=== PATIENT | male | born 1960 | race African-American/Black ===

== ENCOUNTER 2023-12-24 19:37 | Inpatient (IN) | payer OTHER ==
[2023-12-24] MEDS: VANCOMYCIN HCL 1,500 MG in DEXTROSE 5%-WATER - 500 ML IVPB ONE (21:07)
[2023-12-24] MEDS: VANCOMYCIN PREMIX 1.5 GM 1,500 MG/300 ML BAG IVPB ONE (21:08)
[2023-12-24 21:15] LABS: BASO % 0.8 % (0-2.0); HEMATOCRIT 39.2 % (35.4-49); LYMPH % 23.4 % (8-40); MCH 28.4 pg (25.7-33.7); MCHC 33.2 g/dl (32.0-35.9); MEAN CELL VOLUME 85.6 fl (80-96); MEAN PLT VOLUME 10.9 fl (7.5-11.1); MONO % 10.9 % (3.8-10.2); NEUT % 60.9 % (42.8-82.8); PLATELET COUNT 344 10^3/uL (134-434); RBC 4.58 M/mm3 (4.00-5.60); RDW 15.9 % (11.9-15.9); WHITE BLOOD COUNT 12.3 K/mm3 (4.0-10.0)
[2023-12-24 21:43] LABS: CHLORIDE 97 mmol/L (98-107); SODIUM 128 mmol/L (136-145)
[2023-12-24 21:46] LABS: ALBUMIN 3.6 g/dl (3.4-5.0); BLOOD UREA NITROGEN 24.4 mg/dL (7-18); CO2 24 mmol/L (21-32)
[2023-12-24 21:47] LABS: MAGNESIUM 2.3 mg/dL (1.8-2.4)
[2023-12-24 21:49] LABS: CREATININE 1.9 mg/dL (0.55-1.3); SGOT/AST 104 U/L (15-37)
[2023-12-24 21:50] LABS: TOT PROT 9.5 g/dl (6.4-8.2)
[2023-12-24 21:51] LABS: BILIRUBIN,TOTAL 0.6 mg/dL (0.2-1)
[2023-12-24 21:52] LABS: ALK PHOS 197 U/L (45-117)
[2023-12-24] MEDS ORDERED: ACETAMINOPHEN INJECTION 100 ML IVPB ONE ×2 (22:06→22:58)
[2023-12-24] MEDS ORDERED: CEFEPIME 2 GM/100 ML BAG IVPB ONE (22:07)
[2023-12-24 22:12] LABS: ERYTHROCYTE SEDIMENTATION RATE 67 mm/hr (0-20)
[2023-12-24 22:17] LABS: ANION GAP 7 mmol/L (4-13); GLUCOSE,RANDOM 464 mg/dL (74-106); POTASSIUM 7.3 mmol/L (3.5-5.1); SGPT/ALT 57 U/L (13-61)
[2023-12-24] MEDS: SODIUM CHLORIDE 0.9% 500 ML INFUS.BAG IV ONE (22:53)
[2023-12-24] MEDS: ACETAMINOPHEN 325 MG TABLET (FP) PO ONE (22:54)
[2023-12-24] MEDS: LACTATED RINGERS SOLUTION 1000 ML INFUS.BAG IV ONE (22:54)
[2023-12-24] MEDS: ACETAMINOPHEN 1000 MG/100 ML BAG IVPB ONE ×2 (23:16)
[2023-12-24] MEDS: CEFEPIME HCL/D5W 2 GM/50 ML BAG IVPB ONE (23:25)
[2023-12-24 23:39] LABS: ANION GAP 2 mmol/L (4-13); BLOOD UREA NITROGEN 25.2 mg/dL (7-18); CALCIUM 9.1 mg/dL (8.5-10.1); CHLORIDE 100 mmol/L (98-107); CO2 26 mmol/L (21-32); CREATININE 1.9 mg/dL (0.55-1.3); GLUCOSE,RANDOM 484 mg/dL (74-106); MAGNESIUM 1.9 mg/dL (1.8-2.4); POTASSIUM 4.9 mmol/L (3.5-5.1); SODIUM 129 mmol/L (136-145)
[2023-12-25] MEDS ORDERED: HYDROCORTISONE ACETATE 25 MG/SUPP.RECT RC PRN (03:46)
[2023-12-25] MEDS: INSULIN ASPART SLIDING SCALE (NOVOLOG) 1 VIAL SQ SCH (04:52)
[2023-12-25 09:10] LABS: BASO % 0.8 % (0-2.0); EOS % 5.1 % (0-4.5); HEMATOCRIT 34.5 % (35.4-49); HEMOGLOBIN 10.9 GM/dL (11.7-16.9); LYMPH % 28.2 % (8-40); MCH 27.4 pg (25.7-33.7); MCHC 31.6 g/dl (32.0-35.9); MEAN CELL VOLUME 86.6 fl (80-96); MEAN PLT VOLUME 11.1 fl (7.5-11.1); MONO % 16.3 % (3.8-10.2); NEUT % 49.6 % (42.8-82.8); PLATELET COUNT 313 10^3/uL (134-434); RBC 3.98 M/mm3 (4.00-5.60); RDW 15.5 % (11.9-15.9); WHITE BLOOD COUNT 11.9 K/mm3 (4.0-10.0)
[2023-12-25 09:30] LABS: POTASSIUM 4.6 mmol/L (3.5-5.1)
[2023-12-25 09:34] LABS: CALCIUM 9.5 mg/dL (8.5-10.1)
[2023-12-25 09:35] LABS: BLOOD UREA NITROGEN 22.9 mg/dL (7-18)
[2023-12-25 09:38] LABS: CREATININE 1.6 mg/dL (0.55-1.3)
[2023-12-25] MEDS: amLODIPine BESYLATE 10 MG TABLET (FP) PO SCH (09:54)
[2023-12-25] MEDS: LISINOPRIL 20 MG TABLET PO SCH (09:54)
[2023-12-25] MEDS: VANCOMYCIN/WATER FOR INJ (PEG) 1,000 MG/200 ML BAG IVPB SCH (09:54)
[2023-12-25] MEDS: SENNOSIDES 8.6MG TABLET (FP) PO SCH (09:55)
[2023-12-25] MEDS: ARIPiprazole 5 MG TABLET PO SCH (12:08)
[2023-12-25] MEDS: HEPARIN NA (PORCINE) 5,000 UNITS/ML 1ML VIAL SQ SCH (14:25)
[2023-12-25] MEDS: SODIUM CHLORIDE 1,000 ML IV SCH (16:42)
[2023-12-25] MEDS: ATORVASTATIN CA 40 MG TABLET (FP) PO SCH (21:26)
[2023-12-25] MEDS ORDERED: CEFEPIME HCL 2 GM VIAL (RESTRICTED TO ID) IVPB SCH (22:00)
[2023-12-25] MEDS ORDERED: CEFEPIME 2 GM in DEXTROSE 5%-WATER 100 ML IVPB SCH (22:00)
[2023-12-26] MEDS ORDERED: VANCOMYCIN/WATER FOR INJ (PEG) 1,000 MG/200 ML BAG IVPB SCH (09:00)
[2023-12-26 10:16] LABS: POTASSIUM 4.2 mmol/L (3.5-5.1)
[2023-12-26 10:52] LABS: CALCIUM 9.6 mg/dL (8.5-10.1)
[2023-12-26 10:53] LABS: BLOOD UREA NITROGEN 21.8 mg/dL (7-18)
[2023-12-26 10:55] LABS: CREATININE 1.4 mg/dL (0.55-1.3)
[2023-12-26 10:57] LABS: BILIRUBIN,TOTAL 0.4 mg/dL (0.2-1)
[2023-12-26 10:58] LABS: ALBUMIN 2.7 g/dl (3.4-5.0); TOT PROT 6.9 g/dl (6.4-8.2)
[2023-12-26] MEDS ORDERED: VANCOMYCIN 1,000 MG in DEXTROSE 5%-WATER - 250 ML IVPB ONE (18:26)
[2023-12-26] MEDS: VANCOMYCIN/WATER FOR INJ (PEG) 1,000 MG/200 ML BAG IVPB SCH (20:36)
[2023-12-26] MEDS ORDERED: CEFEPIME 2 GM in DEXTROSE 5%-WATER 100 ML IVPB SCH (22:00)
[2023-12-27 09:22] LABS: BASO % 0.7 % (0-2.0); EOS % 4.7 % (0-4.5); HEMATOCRIT 34.8 % (35.4-49); HEMOGLOBIN 10.9 GM/dL (11.7-16.9); LYMPH % 32.6 % (8-40); MCH 27.2 pg (25.7-33.7); MCHC 31.4 g/dl (32.0-35.9); MEAN CELL VOLUME 86.8 fl (80-96); MEAN PLT VOLUME 10.7 fl (7.5-11.1); MONO % 16.1 % (3.8-10.2); NEUT % 45.9 % (42.8-82.8); PLATELET COUNT 258 10^3/uL (134-434); RBC 4.01 M/mm3 (4.00-5.60); RDW 15.7 % (11.9-15.9); WHITE BLOOD COUNT 12.5 K/mm3 (4.0-10.0)
[2023-12-27 09:52] LABS: POTASSIUM 4.2 mmol/L (3.5-5.1)
[2023-12-27 09:57] LABS: ALBUMIN 2.8 g/dl (3.4-5.0)
[2023-12-27 09:58] LABS: BLOOD UREA NITROGEN 17.9 mg/dL (7-18); CALCIUM 9.7 mg/dL (8.5-10.1)
[2023-12-27 10:04] LABS: CREATININE 1.2 mg/dL (0.55-1.3)
[2023-12-27 10:05] LABS: BILIRUBIN,TOTAL 0.5 mg/dL (0.2-1)
[2023-12-27 10:06] LABS: TOT PROT 7.2 g/dl (6.4-8.2)
[2023-12-27] MEDS: POVIDONE-IODINE 10% SOLN 118 ML BOTTLE TP ONE (12:07)
[2023-12-27] MEDS: ERTAPENEM SODIUM 1 GM in SODIUM CHLORIDE 50 ML IVPB SCH (21:26)
[2023-12-28 08:54] LABS: BASO % 0.9 % (0-2.0); EOS % 4.5 % (0-4.5); HEMATOCRIT 35.4 % (35.4-49); HEMOGLOBIN 11.2 GM/dL (11.7-16.9); MCH 27.4 pg (25.7-33.7); MCHC 31.7 g/dl (32.0-35.9); MEAN CELL VOLUME 86.6 fl (80-96); MEAN PLT VOLUME 11.1 fl (7.5-11.1); MONO % 14.5 % (3.8-10.2); NEUT % 48.1 % (42.8-82.8); PLATELET COUNT 316 10^3/uL (134-434); RBC 4.09 M/mm3 (4.00-5.60); RDW 15.1 % (11.9-15.9); WHITE BLOOD COUNT 12.3 K/mm3 (4.0-10.0)
[2023-12-28 09:12] LABS: POTASSIUM 4.6 mmol/L (3.5-5.1)
[2023-12-28 09:14] LABS: CALCIUM 9.8 mg/dL (8.5-10.1)
[2023-12-28 09:15] LABS: BLOOD UREA NITROGEN 16.9 mg/dL (7-18)
[2023-12-28 09:18] LABS: CREATININE 1.3 mg/dL (0.55-1.3)
[2023-12-29 14:11] VITALS: BMI 26.0
[2023-12-30 09:34] LABS: ALBUMIN 2.8 g/dl (3.4-5.0); BLOOD UREA NITROGEN 15.8 mg/dL (7-18); CALCIUM 9.9 mg/dL (8.5-10.1); POTASSIUM 4.3 mmol/L (3.5-5.1)
[2023-12-30 09:35] LABS: BILIRUBIN,TOTAL 0.3 mg/dL (0.2-1); CREATININE 1.3 mg/dL (0.55-1.3); TOT PROT 7.3 g/dl (6.4-8.2)
[2023-12-31 17:29] LABS: EPI CELLS 8 /uL (0-25.1); HYALINE CASTS 2 /uL (0-3.1); URINE APPEARANCE CLEAR; URINE BACTERIA 1 /uL (0-1359); URINE BILIRUBIN NEGATIVE (NEGATIVE); URINE COLOR YELLOW; URINE GLUCOSE (UA) TRACE (NEGATIVE); URINE KETONE NEGATIVE (NEGATIVE); URINE LEUK ESTERASE NEGATIVE (NEGATIVE); URINE NITRITE NEGATIVE (NEGATIVE); URINE PROTEIN 3+ (NEGATIVE); URINE RBC 22 /uL (0-23.9); URINE UROBILINOGEN 0.2 mg/dL (0.2-1.0); URINE WBC 12 /uL (0-25.8)
[2024-01-01 12:32] VITALS: BP 130/78; PULSE 68; RESP 16; TEMP 97.6
== END 2024-01-01 13:09 | DRG 344 ==
LOC: JER 19:37 → JERBED 20:16 → J5S 12-25 03:46
PROVIDERS: ADMIT Internal Medicine; ATTEND Internal Medicine
DX: E11.69 Type 2 diabetes mellitus with other specified complication (principal); M86.9 Osteomyelitis, unspecified; E11.621 Type 2 diabetes mellitus with foot ulcer; N17.9 Acute kidney failure, unspecified; E87.1 Hypo-osmolality and hyponatremia; F20.9 Schizophrenia, unspecified; B95.62 Methicillin resistant Staphylococcus aureus infection as the cause of diseases classified elsewhere; L97.524 Non-pressure chronic ulcer of other part of left foot with necrosis of bone; M25.511 Pain in right shoulder; M25.512 Pain in left shoulder; Z16.12 Extended spectrum beta lactamase (ESBL) resistance; E78.5 Hyperlipidemia, unspecified; I10 Essential (primary) hypertension
CPT/HCPCS: 36415; 71045-TC-FY; 73030-TC-LT-FY; 73030-TC-RT-FY; 73630-TC-LT; 80048; 80053; 81003; 82962; 83036; 83735; 85025; 85651; 86140; 86850; 86900; 86901; 87040; 87070; 87186; 87205; 87635; 93005; 93010; 99285-25; G0480; J0131; J1644